=== PATIENT | female | born 1940 | race Caucasian/White ===

== ENCOUNTER → 2016-10-10 | Day surgery (SDC) | payer MEDICARE ==
[~2016-10-10] MED LIST: ACET25TA4 PO; ALEV220T14 PO; CARI1TAB45 PO; CARI350T20 PO; CARI350T25 PO; DIPH1TAB36 PO; HYDR-3580 PO; HYDR200T3 PO; LEVO50TA4 PO; LIDOCAINE HCL 1% 30 ML VIAL INFIL ONE; LOSA100T2 PO; MELO-1 PO; MEPERIDINE HCL 25 MG/ML VIAL IV ONE; MIDAZOLAM HCL 2 MG/2 ML VIAL IV ONE; MULT-135 PO; MULTTAB67 PO; NAPR220T95 PO; NITR1SUB3 SL; PROPOFOL 200 MG/20 ML AMP IV ONE; SODIUM CHLORIDE 0.9% 10 ML VIAL ONE; VITA100064 PO; ZALE10CA PO; ZETI10TA5 PO; methylPREDNISolone ACETATE 40 MG/ML VIAL I-ARTICULR ONE
--- NOTE | 2016-10-10 22:01 | M6 ---
cc: XIMENA SALGUERO M.D. DATE 10/10/2016 1940 PROCEDURE Fluoroscopically guided radiofrequency rhizotomy bilateral lumbar facet joints (bilateral L3-4, L4-5 and L5-S1 facet joints). History and physical was completed and signed. Consent was signed. Procedure site was marked. Medications were listed and reconciled. Pain score was recorded. Allergies were noted. Time out was taken. Fluoroscopy time was recorded where applicable. Sedation was administered or directed by Dr. Salguero. The patient was given oxygen. The patient was monitored by a registered nurse. Total procedure time was greater than 15 minutes. Three levels are being done because imaging studies show arthritis in all lumbar facet joints and because each facet joint is innervated by the medial branches from the nerves above and below that particular joint. The patient reported 50% or greater pain relief from previous diagnostic facet joint blocks done with fluoroscopic guidance. PROCEDURE: An IV was started, blood pressure cuff, pulse oximeter and EKG were applied. The patient was placed in the prone position on a Glen table, sedated with small amounts of Versed and fentanyl and Propofol titrated to effect. Vital signs were monitored and remained stable throughout the procedure. The lumbar area was scrubbed with antimicrobial solution, prepped with 10% Betadine solution, draped with sterile drapes. Fluoroscopy was used in a slightly oblique angle (Fernando dog view) to clearly visualize the target areas which were the cephalad most medial angle of the transverse processes as they met the pedicle in the anatomical location of the medial branch of the posterior primary ramus on the __ side at __ levels and the angle of the __ sacral ala. The skin was infiltrated with 1% Xylocaine using a 27 gauge needle. An insulated 20 gauge radiofrequency needle with a 10 mm curved tip was advanced to the above-mentioned target areas. Fluoroscopy was used to confirm the needle was properly placed and not near the nerve root. At no time did the patient report any paresthesias down the lower extremity. Once properly positioned thermal lesions took place at 80 degrees Centigrade x 100 seconds at each location. Then, a small amount of Depo-Medrol was injected at each location for a total of 40 mg of Depo-Medrol. Following this the patient was taken to the recovery room with stable vital signs, neurologically intact. W. MD AMANDA Voss/ /8:14 AM /9:59 PM
== END | disposition home or self-care (01) ==
LOC: PHSDC 06:30
PROVIDERS: ATTEND Pain Medicine Interventional Pain Medicine
DX: M46.96 Unspecified inflammatory spondylopathy, lumbar region (principal)
CPT/HCPCS: 64635; 64636; 99152; 99153; J1030; J2175; J2250

== ENCOUNTER → 2016-11-21 | Day surgery (SDC) | payer MEDICARE ==
[~2016-11-21] MED LIST changes: +BUPIVACAINE HCL PF 0.75% 30 ML VIAL ONE; -CARI1TAB45 PO; -CARI350T20 PO; -DIPH1TAB36 PO; -LIDOCAINE HCL 1% 30 ML VIAL INFIL ONE; -MEPERIDINE HCL 25 MG/ML VIAL IV ONE; -MIDAZOLAM HCL 2 MG/2 ML VIAL IV ONE; -MULT-135 PO; -NAPR220T95 PO; -SODIUM CHLORIDE 0.9% 10 ML VIAL ONE; +TRIAMCINOLONE ACETONIDE 40 MG/ML VIAL I-ARTICULR ONE; -methylPREDNISolone ACETATE 40 MG/ML VIAL I-ARTICULR ONE
--- NOTE | 2016-11-24 15:54 | M6 ---
cc: XIMENA SALGUERO M.D. DATE: 11/21/2016. DATE OF : 1940 PROCEDURE PERFORMED: Fluoroscopically-guided injection bilateral lumbar facet joints (bilateral L3-4, L4-5 and L5-S1 facet joints). DESCRIPTION OF THE PROCEDURE IN DETAIL: History and physical was completed and signed. Consent was signed. Procedure site was marked. Medications were listed and reconciled. Pain score was recorded. Allergies were noted. Time out was taken. Fluoroscopy time was recorded where applicable. Sedation was administered or directed by Dr. Salguero. The patient was given oxygen. The patient was monitored by a registered nurse. Total procedure time was greater than 15 minutes. IV was started, blood pressure cuff, pulse oximeter and EKG were applied. The patient was placed in the prone position on a Glen table and sedated with small amounts of propofol titrated to effect. Vital signs were monitored and remained stable throughout the procedure. The lumbar area was prepped with alcohol and 10% Betadine solution and draped with sterile drapes. Fluoroscopy was used in a Fernando dog view to clearly visualize the bilateral lumbar facet joints at L3-4, L4-5 and L5-S1. Separate sterile 3-1/2-inch 25-gauge spinal needles were advanced into these joints under fluoroscopic guidance. There was negative aspiration for blood or any other type of fluid and the patient was given 1 mL of Marcaine 0.75% which contained 10 mg of Kenalog. Following this, the patient was taken to the recovery room with stable vital signs neurologically intact. She will be evaluated immediately and with followup to determine if she has a subjective decrease in her usual pain and a corresponding objective increase her functional capabilities. WMD AMANDA Santana/MOISES /10:17 AM /3:54 PM
== END | disposition home or self-care (01) ==
LOC: PHSDC 08:36
PROVIDERS: ATTEND Pain Medicine Interventional Pain Medicine
DX: M54.5 Low back pain (principal)
CPT/HCPCS: 64493; 64494; 64495; 99152; J3301

== ENCOUNTER → 2017-10-01 | Day surgery (SDC) | payer MEDICARE ==
[~2017-10-01] MED LIST changes: +BUPIVACAINE HCL PF 0.5% 30 ML VIAL ONE; -BUPIVACAINE HCL PF 0.75% 30 ML VIAL ONE; +CYANOCOBALAMIN 1000 MCG/ML VIAL ONE; +EZET10 PO; -MELO-1 PO; +MELO15TA20 PO; -ZETI10TA5 PO; +methylPREDNISolone ACETATE 40 MG/ML VIAL I-ARTICULR ONE
--- NOTE | 2017-10-01 10:03 | M6 ---
cc: Braden Salguero MD DATE: 10/01/2017 PROCEDURE PERFORMED: Injection left greater trochanteric bursa. History and physical was completed and signed. Consent was signed. Procedure site was marked. Medications were listed and reconciled. Pain score was recorded. Allergies were noted. Time out was taken. Fluoroscopy time was recorded where applicable. Sedation was administered or directed by Dr. Salguero. The patient was given oxygen. The patient was monitored by a registered nurse. Total procedure time was greater than 15 minutes. PROCEDURE NOTE: IV was started. Blood pressure cuff, pulse oximeter and EKG were applied. The patient was placed in the supine position and sedated with small amounts of propofol. Vital signs were monitored and remained stable throughout the procedure. The left hip area was prepped with alcohol and 10% Betadine solution and draped with sterile drapes. The left hip was palpated. A 3.5 inch, 22 gauge spinal needle was inserted down to the bone of the trochanter. There was negative aspiration for blood and any other type of fluid and the patient was given 8 mL of 0.5% Marcaine, 20 mg, 20 mg of Kenalog and 1000 mcg of vitamin B12. Following this, the patient was taken to the recovery room with stable vital signs neurologically intact. Braden Salguero MD [facility]/DL , 09:53 AM , 10:02 AM
== END | disposition home or self-care (01) ==
LOC: PHSDC 09:03
PROVIDERS: ATTEND Pain Medicine Interventional Pain Medicine
DX: M25.552 Pain in left hip (principal)
CPT/HCPCS: 20610; 99152; J1030; J3301; J3420